=== PATIENT | female | born 1955 | race Caucasian/White ===

== ENCOUNTER 2016-05-23 10:02 | Observation (INO) ==
--- NOTE | 2016-05-23 10:24 | Emergency Department Note ---
Disposition Clinical Impression: Acute appendicitis Disposition: Admitted As Inpatient Referrals: NO,PCP [Primary Care Provider] - Forms: Work/School Release, ED Satisfaction Letter General Adult HPI - General Chief complaint: ED Abdominal Pain Stated complaint: mulitple complaints Time Seen by Provider: 05/23/16 10:05 Source: EMS - History of Present Illness HPI Narrative: 60-year-old female reports to the emergency department complaining of right sided abdominal pain. She is status post cholecystectomy, she reports there were complications. She reports right upper and right lower abdominal pain, triage nursing documents left lower abdominal pain. The patient reports she has had chronic pain in the abdomen status post her surgery, but the pain bhavna increased over the last 2 days. There is no history of vomiting. There is no history of chest pain or shortness of breath no history of left arm or left jaw pain. There has been no acute cough coughing up blood leg swelling or pain or fever. She describes some flank pain, there is no history of vaginal discharge bleeding or bloody urine. There is been no weakness or numbness in the arms or legs no falls or injuries. No trouble moving her arms or legs independently. No unilateral arm or leg weakness or numbness. No bowel or bladder problems. There is no history of rash. No bloody stool or diarrhea. Pain Scale: 8 - Related Data Allergies Allergy/AdvReac Type Severity Reaction Status Date / Time aspirin Allergy Difficulty Verified 05/23/16 10:39 Breathing Cyclobenzaprine Allergy Difficulty Verified 05/23/16 10:39 [From Flexeril] Breathing Erythromycin Base Allergy Difficulty Verified 05/23/16 10:39 [From Erythrocin] Breathing All systems ED: reviewed and negative except as stated. Past Medical History - Past Medical History Medical history: Reports: myocardial infarction Psychiatric history: Reports: anxiety, depression - Social History Smoking Status: Never smoker Smokeless Tobacco Status: No Alcohol use: Reports: none Drug use: Reports: none Physical Exam - General General appearance: alert, in no apparent distress - Eye Eye exam: Present: normal appearance, PERRL, EOMI - ENT ENT exam: normal exam, normal oropharynx, mucous membranes moist, TM's normal bilaterally, normal external ear exam - Neck Neck exam: Present: normal inspection, full ROM, trachea midline. Absent: tenderness - Chest Chest inspection: Present: symmetric chest wall rise. Absent: tenderness - Respiratory Respiratory exam: Present: normal lung sounds bilaterally. Absent: respiratory distress - Cardiovascular Cardiovascular exam: Present: normal rhythm, tachycardia - Abdominal Exam Abdominal exam: Present: soft. Absent: distention, guarding, rebound, rigidity , trauma, pulsatile mass Abdominal tenderness: Present: RUQ, RLQ, moderate - Extremities Exam Extremities exam: Present: normal inspection, full ROM. Absent: tenderness, normal capillary refill, pedal edema, joint swelling, calf tenderness - Expanded Lower Extremity Exam Neurovascular/Tendon exam: Absent: motor deficit, sensory deficit, tendon deficit, extremity cold to touch, pallor - Back Exam Back exam: Present: normal inspection, full ROM. Absent: tenderness, CVA tenderness (R), CVA tenderness (L), vertebral tenderness - Neurological Exam Neurological exam: Present: alert, oriented X3, CN II-XII intact. Absent: motor sensory deficit - Psychiatric Psychiatric exam: Present: normal affect, normal mood - Skin Skin exam: Present: warm, dry, intact, normal color. Absent: rash, cyanosis, diaphoresis, erythema, pallor, mottled Course Vital Signs Temperature 98.7 F 05/23/16 10:04 Pulse Rate 120 05/23/16 10:04 Respiratory Rate 11 05/23/16 10:04 Blood Pressure 125/76 05/23/16 10:04 O2 Sat by Pulse Oximetry 96 05/23/16 10:04 Temperature 98.7 F 05/23/16 10:04 Pulse Rate 92 05/23/16 12:42 Respiratory Rate 12 05/23/16 12:42 Blood Pressure 115/69 05/23/16 12:42 O2 Sat by Pulse Oximetry 94 L 05/23/16 12:42 Oxygen Delivery Oxygen Delivery Room Air Medical Decision Making - [facility] Narrative Medical decision making narrative: The patient's CT scan indicates acute appendicitis. The patient has right- sided abdominal pain. Secondary examination reveals right lower abdominal pain which is persistent. She was given IV fluids. A dose of Invanz was also given. Pain relief and antiemetic measures were given. EKG sinus tachycardia troponin negative chest x-ray negative. I consulted with Dr. Wesley surgeon on-call who will evaluate the patient. I suspect the patient will go to surgery. PT INR PTT have been drawn. The patient is currently stable. - Lab Data Lab results reviewed: Yes I reviewed the patient's lab results. Result diagrams: 05/23/16 11:14 05/23/16 11:14 Lab Results 05/23/16 05/23/16 05/23/16 Range/Units 11:14 11:14 11:14 WBC 17.0 H (4.3-11.1) K/mcL RBC 5.26 H (3.82-4.97) M/mcL Hgb 13.3 (11.5-15.4) g/dL Hct 40.9 (35.3-44.9) % MCV 77.8 L (83.0-100.0) fL MCH 25.3 L (28.0-33.3) pg MCHC 32.5 (31.6-35.5) g/dL RDW 15.9 H (11.5-14.5) % Plt Count 206 (140-400) K/mcL MPV 9.7 (9.4-12.4) fL Immature Gran % 0.9 (0-4) % Seg Neutrophils % 94.3 % Lymphocytes % 1.9 % Monocytes % 2.6 % Eosinophils % 0.1 % Basophils % 0.2 % Neutrophils # 16.1 H (1.6-8.9) K/mcL Lymphocytes # 0.3 L (0.6-4.6) K/mcL Monocytes # 0.5 (0.0-1.3) K/mcL Eosinophils # 0.0 (0.0-0.6) K/mcL Basophils # 0.0 (0.0-0.2) K/mcL Immature Plt Fraction 2.2 (1.1-6.1) % Sodium 137 (136-145) mEq/L Potassium 3.4 L (3.5-4.5) mEq/L Chloride 106 (98-109) mEq/L Carbon Dioxide 20 (19-29) mEq/L BUN 14 (7-20) mg/dL Creatinine 0.85 (0.57-1.11) mg/dL Est GFR ( Amer) > 60 (> 60) Est GFR (Non-Af Amer) > 60 (> 60) BUN/Creatinine Ratio 16 (6-26) Glucose 114 H (70-99) mg/dL Calculated Osmolality 285 (280-300) Lactic Acid 2.8 H (0.5-2.2) mmol/L Calcium 9.2 (8.6-10.8) mg/dL Total Bilirubin 1.1 (0.2-1.2) mg/dL Direct Bilirubin 0.5 (0.0-0.5) mg/dL Indirect Bilirubin 0.6 (0.0-1.2) mg/dL AST 15 (5-34) Units/L ALT 19 (0-55) Units/L Alkaline Phosphatase 75 (38-126) Units/L Troponin I (0-0.03) ng/mL C-Reactive Protein 34 H (Less than 5) mg/L Serum Total Protein 7.3 (6.0-8.3) g/dL Albumin 3.7 (3.5-5.0) g/dL Globulin 3.6 H (2.4-3.5) g/dL Albumin/Globulin Ratio 1.0 L (1.1-2.2) Lipase 7 L (8-78) Units/L Urine Color (Yellow) Urine Clarity (Clear) Urine pH (5.0-8.0) pH Units Ur Specific [place] (1.010-1.025) Urine Protein (Neg-Trace) mg/dL Urine Glucose (UA) (Normal) mg/dL Urine Ketones (Negative) mg/dL Urine Blood (Negative) Urine Nitrite (Negative) Urine Bilirubin (Negative) Urine Urobilinogen (Normal) mg/dL Ur Leukocyte Esterase (Negative) Ur Culture Indicated? (NO) Urine Opiates Screen (Molltf=822) ng/mL Ur Barbiturates Screen (Iirpgq=528) ng/mL Ur Phencyclidine Scrn (Cutoff=25) ng/mL Ur Amphetamines Screen (Caulme=5319) ng/mL U Benzodiazepines Scrn (Yinvum=877) ng/mL Urine Cocaine Screen (Cutoff= 300) ng/mL U Marijuana (THC) Screen (Cutoff = 50) ng/mL 05/23/16 05/23/16 05/23/16 Range/Units 11:14 11:45 11:45 WBC (4.3-11.1) K/mcL RBC (3.82-4.97) M/mcL Hgb (11.5-15.4) g/dL Hct (35.3-44.9) % MCV (83.0-100.0) fL MCH (28.0-33.3) pg MCHC (31.6-35.5) g/dL RDW (11.5-14.5) % Plt Count (140-400) K/mcL MPV (9.4-12.4) fL Immature Gran % (0-4) % Seg Neutrophils % % Lymphocytes % % Monocytes % % Eosinophils % % Basophils % % Neutrophils # (1.6-8.9) K/mcL Lymphocytes # (0.6-4.6) K/mcL Monocytes # (0.0-1.3) K/mcL Eosinophils # (0.0-0.6) K/mcL Basophils # (0.0-0.2) K/mcL Immature Plt Fraction (1.1-6.1) % Sodium (136-145) mEq/L Potassium (3.5-4.5) mEq/L Chloride (98-109) mEq/L Carbon Dioxide (19-29) mEq/L BUN (7-20) mg/dL Creatinine (0.57-1.11) mg/dL Est GFR ( Amer) (> 60) Est GFR (Non-Af Amer) (> 60) BUN/Creatinine Ratio (6-26) Glucose (70-99) mg/dL Calculated Osmolality (280-300) Lactic Acid (0.5-2.2) mmol/L Calcium (8.6-10.8) mg/dL Total Bilirubin (0.2-1.2) mg/dL Direct Bilirubin (0.0-0.5) mg/dL Indirect Bilirubin (0.0-1.2) mg/dL AST (5-34) Units/L ALT (0-55) Units/L Alkaline Phosphatase (38-126) Units/L Troponin I 0.00 (0-0.03) ng/mL C-Reactive Protein (Less than 5) mg/L Serum Total Protein (6.0-8.3) g/dL Albumin (3.5-5.0) g/dL Globulin (2.4-3.5) g/dL Albumin/Globulin Ratio (1.1-2.2) Lipase (8-78) Units/L Urine Color Yellow (Yellow) Urine Clarity Clear (Clear) Urine pH 5.5 (5.0-8.0) pH Units Ur Specific [place] 1.019 (1.010-1.025) Urine Protein Negative (Neg-Trace) mg/dL Urine Glucose (UA) Normal (Normal) mg/dL Urine Ketones Negative (Negative) mg/dL Urine Blood Negative (Negative) Urine Nitrite Negative (Negative) Urine Bilirubin Negative (Negative) Urine Urobilinogen Normal (Normal) mg/dL Ur Leukocyte Esterase Negative (Negative) Ur Culture Indicated? NO (NO) Urine Opiates Screen Negative (Psxfxf=176) ng/mL Ur Barbiturates Screen Negative (Tcuxyk=661) ng/mL Ur Phencyclidine Scrn Negative (Cutoff=25) ng/mL Ur Amphetamines Screen Negative (Jtubtv=8408) ng/mL U Benzodiazepines Scrn Negative (Pobosu=031) ng/mL Urine Cocaine Screen Negative (Cutoff= 300) ng/mL U Marijuana (THC) Screen Negative (Cutoff = 50) ng/mL - Radiology Data Radiology results reviewed: Yes I reviewed the patient's radiology results.
[2016-05-23] MEDS ORDERED: Ondansetron 4 MG/2 ML VIAL IVP ONE (10:32)
[2016-05-23] MEDS ORDERED: *HR* HYDROmorphone (PF) 1 MG/ML SYRINGE IVP ONE ×2 (10:32→14:21)
[2016-05-23 11:22] LABS: Basophils % 0.2 %; Eosinophils % 0.1 %; Hematocrit 40.9 % (35.3-44.9); Hemoglobin 13.3 g/dL (11.5-15.4); Immature Granulocytes % 0.9 % (0-4); Immature Platelets 2.2 % (1.1-6.1); Lymphocytes # 0.3 K/mcL (0.6-4.6); Lymphocytes % 1.9 %; Mean Corpuscular HGB Conc 32.5 g/dL (31.6-35.5); Mean Corpuscular Hemoglobin 25.3 pg (28.0-33.3); Mean Corpuscular Volume 77.8 fL (83.0-100.0); Mean Platelet Volume 9.7 fL (9.4-12.4); Monocytes # 0.5 K/mcL (0.0-1.3); Monocytes % 2.6 %; Neutrophils # 16.1 K/mcL (1.6-8.9); Platelet Count 206 K/mcL (140-400); Red Blood Count 5.26 M/mcL (3.82-4.97); Red Cell Distribution Width 15.9 % (11.5-14.5); Segmented Neutrophils % 94.3 %
[2016-05-23 11:40] LABS: Alanine Aminotransferase 19 Units/L (0-55); Albumin 3.7 g/dL (3.5-5.0); Alkaline Phosphatase 75 Units/L (38-126); Aspartate Amino Transferase 15 Units/L (5-34); BUN/Creatinine Ratio 16 (6-26); Bilirubin,Direct 0.5 mg/dL (0.0-0.5); Bilirubin,Indirect 0.6 mg/dL (0.0-1.2); Bilirubin,Total 1.1 mg/dL (0.2-1.2); Blood Urea Nitrogen 14 mg/dL (7-20); C-Reactive Protein 34 mg/L (Less than 5); Calcium 9.2 mg/dL (8.6-10.8); Carbon Dioxide 20 mEq/L (19-29); Chloride 106 mEq/L (98-109); Globulin 3.6 g/dL (2.4-3.5); Glucose 114 mg/dL (70-99); Lipase 7 Units/L (8-78); Osmolality,Calculated 285 (280-300); Potassium 3.4 mEq/L (3.5-4.5); Sodium 137 mEq/L (136-145); Total Protein 7.3 g/dL (6.0-8.3); eGFR For African Americans > 60 (> 60); eGFR For Non-African Americans > 60 (> 60)
[2016-05-23 12:01] LABS: Bilirubin,Urine Negative (Negative); Blood,Urine Negative (Negative); Clarity,Urine Clear (Clear); Color,Urine Yellow (Yellow); Glucose,Urine (UA) Normal (Normal); Ketones,Urine Negative (Negative); Leukocyte Esterase,Urine Negative (Negative); Nitrite,Urine Negative (Negative); PH,Urine 5.5 pH Units (5.0-8.0); Protein,Urine Negative (Neg-Trace); Specific Gravity,Urine 1.019 (1.010-1.025); Urobilinogen,Urine Normal (Normal)
[2016-05-23 12:13] LABS: Amphetamine Screen,Urine Negative ng/mL (Cutoff=1000); Barbiturate Screen,Urine Negative ng/mL (Cutoff=200); Benzodiazepines Screen,Urine Negative ng/mL (Cutoff=200); Cannabinoid Screen,Urine Negative ng/mL (Cutoff = 50); Cocaine Screen,Urine Negative ng/mL (Cutoff= 300); Opiate Screen,Urine Negative ng/mL (Cutoff=300); Phencyclidine Screen,Urine Negative ng/mL (Cutoff=25)
[2016-05-23] MEDS ORDERED: Ertapenem 1,000 MG in 0.9 % Sodium Chloride Mini Bag 100 ML IVPB ONE (12:52)
[2016-05-23] MEDS ORDERED: 0.9 % Sodium Chloride 1,000 ML IVC ONE (12:57)
[2016-05-23 13:09] LABS: INR 1.2; Prothrombin Time 12.6 Seconds (9.4-12.1)
[2016-05-23 13:11] LABS: Activated Partial Thrombo Time 26.1 Seconds (26.0-36.0)
--- NOTE | 2016-05-23 13:15 | General Surg History&Physical ---
Date of Encounter: 05/23/16 Time of Encounter: 13:13 Assessment and Plan (1) Acute appendicitis Current Visit: Yes Status: Acute The assessment and plan as outlined above was discussed with the patient and/or family members who expressed understanding and agreement. All questions were answered. I explained to the patient that I personally reviewed the CT scan images and report and agree that she has evidence of acute appendicitis. I furthermore explained that I do not have an etiology behind her continued RUQ pain (and the CT scan did not show any evidence of an abnormality present in the RUQ), but the goal today will be to perform a laparoscopic appendectomy. Risks and benefits have been discussed with the patient and she agrees to the above plan. Qualifiers: Acute appendicitis type: with localized peritonitis Qualified Code(s): K35.3 - Acute appendicitis with localized peritonitis History of Present Illness Chief complaint: Right lower abdominal pain HPI: Ms. Snyder is a 60 year old female with no significant past medical history states that over the past 1.5 days she has developed sharp continuous RLQ pain with nausea. She denies any vomiting and does admit to recent constipation but states that since her gall bladder surgery in October of 2015 she has a BM 1/ day. She does admit to having episodes of blood in the stool around the time she had her cholecystectomy. She presented to the ER due to her continuous abdominal pain. Of note; she has had complaints of RUQ pain since the time of her surgery and still has it to this day and is unsure as to the cause of this continued pain. Past Med Surg Social Fam HX - Past Medical History Medical history: myocardial infarction Psychiatric history: anxiety, depression - Past Surgical History Surgical History: cholecystectomy (10/2015), other (Tubal ligation, wisdom teeth extraction, ) - Social History Smoking Status: Never smoker Smokeless Tobacco Status: No Alcohol use: none Drug use: none Medications and Allergies Allergies aspirin Allergy (Verified 05/23/16 10:39) Difficulty Breathing Cyclobenzaprine [From Flexeril] Allergy (Verified 05/23/16 10:39) Difficulty Breathing Erythromycin Base [From Erythrocin] Allergy (Verified 05/23/16 10:39) Difficulty Breathing Review of Systems All systems PM: reviewed and no additional remarkable complaints except as stated All systems PM: A 10-system review of systems was performed and is negative for pertinent findings except as documented above in the HPI. General Surgery Exam Initial Vital Signs Temp Pulse Resp BP Pulse Ox 98.7 F 120 11 125/76 96 05/23/16 10:04 05/23/16 10:04 05/23/16 10:04 05/23/16 10:04 05/23/16 10:04 - General physical appearance well developed, well nourished, moderate distress - Eyes PERRL, normal ocular movement - Neck no masses, trachea midline, no lymphadectomy - Respiratory normal expansion, normal respiratory effort, clear to auscultation - Cardiovascular Cardiovascular exam: Present: tachycardia (mild), no murmurs/rubs/gallops - Abdomen Abdomen general surgery: Present: bowel sounds present, soft (obese), tender ( RLQ pain greater than RUQ pain. No masses palpated.) - Neurologic Present: CN 2-12 grossly intact - Musculoskeletal Present: other (No clubbing, cyanosis, or edema) - Psychiatric Psychiatric general surgery: Present: A&Ox3, appropriate, oriented to person, oriented to place, oriented to time Results - Labs 05/23/16 11:14 05/23/16 11:14 Abnormal lab results WBC 17.0 K/mcL (4.3-11.1) H 05/23/16 11:14 RBC 5.26 M/mcL (3.82-4.97) H 05/23/16 11:14 MCV 77.8 fL (83.0-100.0) L 05/23/16 11:14 MCH 25.3 pg (28.0-33.3) L 05/23/16 11:14 RDW 15.9 % (11.5-14.5) H 05/23/16 11:14 Neutrophils # 16.1 K/mcL (1.6-8.9) H 05/23/16 11:14 Lymphocytes # 0.3 K/mcL (0.6-4.6) L 05/23/16 11:14 Potassium 3.4 mEq/L (3.5-4.5) L 05/23/16 11:14 Glucose 114 mg/dL (70-99) H 05/23/16 11:14 Lactic Acid 2.8 mmol/L (0.5-2.2) H 05/23/16 11:14 C-Reactive Protein 34 mg/L (Less than 5) H 05/23/16 11:14 Globulin 3.6 g/dL (2.4-3.5) H 05/23/16 11:14 Albumin/Globulin Ratio 1.0 (1.1-2.2) L 05/23/16 11:14 Lipase 7 Units/L (8-78) L 05/23/16 11:14 All other labs normal. - Imaging CT scan - abdomen: report reviewed, image reviewed (enlarged appendix with inflammation consistent with acute appendicitis)
[2016-05-23] MEDS ORDERED: 0.9 % Sodium Chloride 1,000 ML IVC SCH (14:30)
--- NOTE | 2016-05-23 15:24 | Anesthesia Evaluation PreOp ---
Date of Encounter: 05/23/16 Time of Encounter: 15:18 - Past History Planned Operation: lap appy Cardiac History: CO ("7 years ago, no issues since, mild") Pulmonary History: Denies Any Significant HX, COPD (questionable) THIRD HAND History: Other (anxiety/depression) Other Medical History: Denies Any Significant HX Anesthesia History: No Prior Anesthetic Complications, Past Anesthesia ( cholecyst, btl) Alcohol Use: none Drug use: none Medications and Allergies Acetaminophen [Tylenol] 500 mg PO Q6HR PRN 05/23/16 [History] DiphenhydraMINE [Benadryl] 25 mg PO Q4HR PRN 05/23/16 [History] Mv-Mn/FA/Vit K/Lycop/Lut/Coq10 [Daily Multivitamin Capsule] 1 each PO DAILY [History] Allergies aspirin Allergy (Verified 05/23/16 10:39) Difficulty Breathing Cyclobenzaprine [From Flexeril] Allergy (Verified 05/23/16 10:39) Difficulty Breathing Erythromycin Base [From Erythrocin] Allergy (Verified 05/23/16 10:39) Difficulty Breathing - Meds/Allergy Pre-op Review Medications Reviewed: Yes Allergies Reviewed: Yes Beta Blockers on Current Med List: No Anesthesia Results - Labs 05/23/16 11:14 05/23/16 11:14 Anesthesia Exam Vital Signs/O2 Sat/Glucose, Most Current Pulse Resp BP Pulse Ox 05/23/16 15:08 0 0/0 05/23/16 13:18 99 14 124/78 93 L 05/23/16 12:42 92 12 115/69 94 L 05/23/16 11:42 102 12 113/72 94 L Height: 1.52 Weight: 77 NPO (# of Hours): >8 - HEENT Pupil (Motor): Pupils equal, EOMI Mallampati: II Teeth: Edentulous Denture Type: Upper: Complete, Lower: Complete Oral Opening: Greater than 3 - THIRD HAND LOC: Oriented THIRD HAND Motor: Normal RUE, Normal LUE, Normal RLE, Normal LLE, Normal Face THIRD HAND Sensory: Normal: RUE, LUE, RLE, LLE, Face - Cardiac Rhythm: Regular Murmur: None - Pulmonary Breath Sounds: bilateral Clear Respiratory Effort: Symmetrical Anesthesia Assess/Plan ASA Score: 2 Modified Amity Scale for Level of Consciousness: Cooperative, oriented, and tranquil Anesthetic Plan: General Monitoring Plan: Standard Monitors Recovery Plan: PACU
[2016-05-23] MEDS ORDERED: *HR* Propofol 200 MG/20 ML VIAL IVP ONE (15:46)
[2016-05-23] MEDS ORDERED: Ondansetron 4 MG/2 ML VIAL ONE (15:47)
[2016-05-23] MEDS ORDERED: *HR* FentaNYL (PF) 100 MCG/2 ML VIAL ONE ×2 (15:47→16:29)
[2016-05-23] MEDS ORDERED: Lidocaine -MPF 2% 2 ML VIAL ONE (15:47)
[2016-05-23] MEDS ORDERED: *HR* Succinylcholine 200 MG/10 ML VIAL IVP ONE (15:47)
[2016-05-23] MEDS ORDERED: Dexamethasone 4 MG/ML VIAL ONE (15:47)
[2016-05-23] MEDS ORDERED: *HR* Rocuronium Bromide 50 MG/5 ML VIAL ONE (15:51)
[2016-05-23] MEDS ORDERED: Acetaminophen IV 1,000 MG/100 ML INFUS..BTL ONE (15:51)
[2016-05-23] MEDS ORDERED: *HR* Phenylephrine 10 MG/ML VIAL ONE (16:10)
[2016-05-23] MEDS ORDERED: EPHEDrine 50 MG/ML VIAL ONE (16:16)
[2016-05-23] MEDS ORDERED: *HR* Promethazine 25 MG/ML VIAL IVP PRN (16:41)
--- NOTE | 2016-05-23 16:54 | Operative Note ---
Date of procedure: 05/23/16 Pre-op diagnosis: Acute appendicitis Post-op diagnosis: same Procedure: Laparoscopic appendectomy Anesthesia: MIGUEL Surgeon: Lance Wesley Woodworking Machine Operator: Pari Bee Woodworking Machine Operator Other: ADELE Romero Specimen: appendix Condition: stable Disposition: PACU Procedure in Detail: Date of surgery: 05/23/16 After properly identifying the patient, the patient was brought to the operating room and placed in the supine position. After proper IV sedation was achieved followed by general endotracheal intubation, the patient's abdomen was prepped and draped in a normal sterile fashion. A timeout was performed noting the patient's name and type of procedure to be performed. A supraumbilical incision with an 11 blade scalpel was made down to the level of the rectus fascia. The rectus fascia was incised and the abdomen was entered and a 12 mm port was placed in the incision. A laparoscopic camera was placed through the port which showed no injury to the intra-abdominal organs upon entry. The abdomen was insufflated with carbon dioxide and a suprapubic 5 mm port and a left lower quadrant 5 mm port were placed under direct camera visualization. The right lower quadrant was examined and there was evidence of a dilated appendix with fibrinous exudate and adhesions, consistent with acute appendicitis. The appendix was grasped with a nontraumatic grasper and retracted anteriorly. Bovie cauterization was used to dissect some of the adhesions away from the mesentery and the appendix. The meso-appendix and base of the appendix were dissected free with a [place] dissector. The meso- appendix and the base of the appendix were transected with several independent staple lines with a laparoscopic LAURENCE stapler. The appendix was removed from the abdomen via an Endobag and the right lower quadrant and pelvis were copiously irrigated with normal saline solution until the effluent was clear. Reinspection of the right lower quadrant demonstrated maintenance of hemostasis. All ports were removed from the abdomen after the abdomen was desufflated. The supraumbilical incision was closed by reapproximating the fascia with a [id number] 0 Vicryl suture. The subcutaneous tissue was reapproximated with an interrupted 3-0 Vicryl suture and the epidermal and dermal layers for the remaining incisions were closed with 4-0 Monocryl sutures. Needle, sponge, and instrument counts were correct 2 and the incisions were covered with Steri- Strips and Band-Aids. The patient was aroused from IV sedation, extubated in the operating room without complication, and transported to the recovery room in stable condition.
[2016-05-23] MEDS: *HR* HYDROmorphone (PF) 1 MG/ML SYRINGE IVP PRN ×4 (17:18→18:48)
[2016-05-23] MEDS ORDERED: 0.9 % Sodium Chloride 500 ML ONE (17:27)
--- NOTE | 2016-05-23 17:46 | Anesthesia Evaluation Post Op ---
Date of Encounter: 05/23/16 Time of Encounter: 17:45 - Vital Signs Vital Signs: Vital Signs/O2 Sat, Most Current Temp Pulse Resp BP Pulse Ox 97.8 F 78 16 108/79 97 05/23/16 17:30 05/23/16 17:40 05/23/16 17:40 05/23/16 17:40 05/23/16 17:40 - Lungs Lungs: Clear Ascult./Percussion - Airway Airway: Non-obstructed - Cardiovascular Regular Rate - Mental Status Mental Status: Alert & Oriented, Answers Appropriately - Pain Pain Scale: 3 Pain Scale used: Numeric (1 - 10) - Nausea Vomiting Nausea Vomiting: Not Present - Hydration Hydration: Tolerates oral liquids, Has not voided - Discharge PostOp Status: Transfer Patient to floor
[2016-05-23] MEDS ORDERED: *HR* OxyCODONE/APAP 10/325 TABLET PO PRN (18:02)
[2016-05-23] MEDS: 0.9 % Sodium Chloride 1,000 ML IVC SCH (18:26)
[2016-05-23] MEDS: Ondansetron 4 MG/2 ML VIAL IVP PRN (19:56)
[2016-05-23] MEDS: cefOXitin 1,000 MG in D5% in Water (Mini-Bag+) 100 ML IVPB SCH (23:04)
[2016-05-24] MEDS: Ondansetron 4 MG/2 ML VIAL IVP PRN (02:24)
[2016-05-24 05:12] LABS: Basophils % 0.2 %; Eosinophils % 0.1 %; Hematocrit 33.9 % (35.3-44.9); Immature Granulocytes % 0.2 % (0-4); Lymphocytes # 0.8 K/mcL (0.6-4.6); Lymphocytes % 6.9 %; Mean Corpuscular HGB Conc 32.2 g/dL (31.6-35.5); Mean Corpuscular Hemoglobin 25.8 pg (28.0-33.3); Mean Corpuscular Volume 80.1 fL (83.0-100.0); Mean Platelet Volume 10.4 fL (9.4-12.4); Monocytes # 0.7 K/mcL (0.0-1.3); Monocytes % 5.3 %; Neutrophils # 10.7 K/mcL (1.6-8.9); Platelet Count 164 K/mcL (140-400); Red Blood Count 4.23 M/mcL (3.82-4.97); Red Cell Distribution Width 16.5 % (11.5-14.5); Segmented Neutrophils % 87.3 %
[2016-05-24 05:25] LABS: Hemoglobin 10.9 g/dL (11.5-15.4)
[2016-05-24 05:41] LABS: BUN/Creatinine Ratio 13 (6-26); Blood Urea Nitrogen 10 mg/dL (7-20); Carbon Dioxide 23 mEq/L (19-29); Chloride 110 mEq/L (98-109); Glucose 111 mg/dL (70-99); Osmolality,Calculated 290 (280-300); Potassium 3.8 mEq/L (3.5-4.5); Sodium 140 mEq/L (136-145); eGFR For African Americans > 60 (> 60); eGFR For Non-African Americans > 60 (> 60)
[2016-05-24 05:46] LABS: Calcium 7.8 mg/dL (8.6-10.8)
[2016-05-24] MEDS ORDERED: Acetaminophen 325 MG TABLET PO PRN (06:41)
[2016-05-24] MEDS: *HR* HYDROmorphone (PF) 1 MG/ML SYRINGE IVP PRN (06:43)
[2016-05-24 07:34] VITALS: BP 95/55
[2016-05-24] MEDS: Ondansetron 4 MG/2 ML VIAL IVP SCH ×2 (07:50→11:17)
[2016-05-24] MEDS: 0.9 % Sodium Chloride 1,000 ML IVC SCH (07:51)
[2016-05-24] MEDS: cefOXitin 1,000 MG in D5% in Water (Mini-Bag+) 100 ML IVPB SCH (07:52)
--- NOTE | 2016-05-24 09:58 | Electrocardiograph Report ---
[address] [address] Test Date: 2016-05-23 Pat Name: Gemini Snyder Department: 103 Room: 3A Gender: F Dovetailer: : 1955 Requested By: Viral Bhatti Order Number: [id number] Reading MD: Paradise Ludwig Measurements Intervals [place] Rate: 118 P: 20 VA: 132 QRS: -8 QRSD: 80 T: 55 QT: 328 QTc: 398 Interpretive Statements SINUS TACHYCARDIA MINIMAL ST DEPRESSION ABNORMAL RHYTHM ECG Electronically Signed On 05-24-2016 9:56:56 EST by Paradise Ludwig
--- NOTE | 2016-05-24 10:32 | Discharge Summary ---
<Rickey Ignacio - Last Filed: 05/24/16 10:55> Date of Encounter: 05/24/16 Time of Encounter: 08:30 - Discharge Diagnosis (1) Acute appendicitis Priority: Primary Status: Resolved Qualifiers: Acute appendicitis type: with localized peritonitis Qualified Code(s): K35.3 - Acute appendicitis with localized peritonitis - Discharge Medications Prescriptions: Ondansetron ODT [Zofran ODT] 4 mg PO Q4HR PRN #10 tab.rapdis PRN Reason: Nausea Acetaminophen [Tylenol] 650 mg PO Q6HR PRN #30 tablet PRN Reason: Pain Amoxicillin/Clavulanate [Augmentin] 875 mg PO BIDWM #10 tablet Home Medications: Acetaminophen [Tylenol] 500 mg PO Q6HR PRN 05/23/16 [History] DiphenhydraMINE [Benadryl] 25 mg PO Q4HR PRN 05/23/16 [History] Mv-Mn/FA/Vit K/Lycop/Lut/Coq10 [Daily Multivitamin Capsule] 1 each PO DAILY [History] Acetaminophen [Tylenol] 650 mg PO Q6HR PRN #30 tablet 05/24/16 [Rx] Amoxicillin/Clavulanate [Augmentin] 875 mg PO BIDWM #10 tablet 05/24/16 [Rx] Ondansetron ODT [Zofran ODT] 4 mg PO Q4HR PRN #10 tab.rapdis 05/24/16 [Rx] Allergies/Adverse Reactions: Allergies aspirin Allergy (Verified 05/23/16 10:39) Difficulty Breathing Cyclobenzaprine [From Flexeril] Allergy (Verified 05/23/16 10:39) Difficulty Breathing Erythromycin Base [From Erythrocin] Allergy (Verified 05/23/16 10:39) Difficulty Breathing General Surgery Exam Initial Vital Signs Temp Pulse Resp BP Pulse Ox 98.7 F 120 11 125/76 96 05/23/16 10:04 05/23/16 10:04 05/23/16 10:04 05/23/16 10:04 05/23/16 10:04 - General physical appearance well developed, well nourished, no distress - Eyes normal ocular movement - ENT normal mucosa - Neck trachea midline - Respiratory normal respiratory effort, clear to auscultation - Cardiovascular Cardiovascular exam: Present: RRR - Abdomen Abdomen general surgery: Present: bowel sounds present, soft, tender (expected postoperative tenderness) - Incision Incision: Present: clean and dry, intact - Integumentary Integumentary general surgery: Present: warm and dry - Neurologic Present: CN 2-12 grossly intact - Musculoskeletal Present: normal posture - Psychiatric Psychiatric general surgery: Present: A&Ox3, appropriate, oriented to person, oriented to place, oriented to time, speech is normal Date of admission: 05/23/16 13:08 Primary care physician: PCP NO Consults: 05/24/16 09:28 Consult to Biomedical Service Engineer [CONS] Routine Reason for SW Consult: discharge planning Discharging clinician: Lance Wesley Anticipated date of discharge: 05/24/16 - Patient Status Disposition: Home, Self-Care Condition: Good Functional capacity at discharge: independent ambulation Overall status at discharge: patient is progressing back to baseline - Discharge Instructions Follow Up With: Robert Merida DO [Resident] - 06/01/16 2:00 pm (New patient appt. Please bring any medications, photo ID, insurance card and the new patient packet with you to your appt. If you need to cancel, please do so with a 24 hour notice. Thank you) Paradise Mijares FLOORING MACHINE OPERATOR [Advanced Practice Nurse] - 06/08/16 9:45 am Additional Instructions: #1 may shower starting today, no tub bath for 2 weeks #2 wash incisions with soap and water and pat dry daily #3 no lifting, pushing, pulling more than 15 pounds for the next 2 weeks #4 may climb stairs - Diet and Activity Activity: increase activity as tolerated Diet: advance to your usual diet - Hospital Course Hospital course: Ms. Snyder is a 60 year old female who presented to the ED yesterday for 1.5 days of sharp continuous RLQ pain with nausea. On CT she was found to have an acute appendicitis. She underwent laparoscopic appendectomy on 05/23/16. She tolerated the procedure well, and her pain has been well controlled with Tylenol. She refused narcotic medications while in the hospital the morning after her procedure. She was able to tolerate a regular diet without nausea this morning. She will be discharged on antibiotics and with a prescription of Tylenol for continued pain control. All questions were answered and the patient is understanding and agreeable to the plan of care. - Time Spent with Patient Total time spent providing and/or coordinating discharge services: Less than 30 minutes Labs on day of discharge: Labs from last 24 hours 05/24/16 05/24/16 04:26 04:26 WBC 12.3 H RBC 4.23 Hgb 10.9 L D Hct 33.9 L MCV 80.1 L MCH 25.8 L MCHC 32.2 RDW 16.5 H Plt Count 164 MPV 10.4 Immature Gran % 0.2 Seg Neutrophils % 87.3 Lymphocytes % 6.9 Monocytes % 5.3 Eosinophils % 0.1 Basophils % 0.2 Neutrophils # 10.7 H Lymphocytes # 0.8 Monocytes # 0.7 Eosinophils # 0.0 Basophils # 0.0 Sodium 140 Potassium 3.8 Chloride 110 H Carbon Dioxide 23 BUN 10 Creatinine 0.79 Est GFR ( Amer) > 60 Est GFR (Non-Af Amer) > 60 BUN/Creatinine Ratio 13 Glucose 111 H Calculated Osmolality 290 Calcium 7.8 L D - Attending Attestation I examined this patient and my medical decision-making was reviewed with the MANUFACTURING ENGINEER CHIEF/PA/Advanced Practice Nurse/Resident Physician. I agree with the documented findings, disposition and treatment plan as described except to the extent set forth below. <Lance Wesley M - Last Filed: 05/24/16 12:49> - Discharge Diagnosis (1) Acute appendicitis Status: Resolved Qualifiers: Acute appendicitis type: with localized peritonitis Qualified Code(s): K35.3 - Acute appendicitis with localized peritonitis General Surgery Exam Initial Vital Signs Temp Pulse Resp BP Pulse Ox 98.7 F 120 11 125/76 96 05/23/16 10:04 05/23/16 10:04 05/23/16 10:04 05/23/16 10:04 05/23/16 10:04 Date of admission: 05/23/16 13:08 Primary care physician: PCP NO Consults: 05/24/16 09:28 Consult to Biomedical Service Engineer [CONS] Routine Reason for SW Consult: discharge planning - Hospital Course Hospital course: Ms. Snyder is a 60 year old female - Time Spent with Patient Total time spent providing and/or coordinating discharge services: Labs on day of discharge: Labs from last 24 hours 05/24/16 05/24/16 04:26 04:26 WBC 12.3 H RBC 4.23 Hgb 10.9 L D Hct 33.9 L MCV 80.1 L MCH 25.8 L MCHC 32.2 RDW 16.5 H Plt Count 164 MPV 10.4 Immature Gran % 0.2 Seg Neutrophils % 87.3 Lymphocytes % 6.9 Monocytes % 5.3 Eosinophils % 0.1 Basophils % 0.2 Neutrophils # 10.7 H Lymphocytes # 0.8 Monocytes # 0.7 Eosinophils # 0.0 Basophils # 0.0 Sodium 140 Potassium 3.8 Chloride 110 H Carbon Dioxide 23 BUN 10 Creatinine 0.79 Est GFR ( Amer) > 60 Est GFR (Non-Af Amer) > 60 BUN/Creatinine Ratio 13 Glucose 111 H Calculated Osmolality 290 Calcium 7.8 L D - Attending Attestation I personally reviewed the assessment and physical exam. Notes decreased pain and able to tolerate PO diet. Will discharge home with follow up in two weeks.
[2016-05-24] MEDS ORDERED: *HR* Heparin 5,000 UNIT/ML VIAL SQ SCH (19:00)
== END 2016-05-24 13:37 | disposition home or self-care (01) ==
LOC: 3ANU 10:02 → EMEROO 10:02 → 3ANU 15:00
PROVIDERS: ADMIT Surgery; ATTEND Surgery